=== PATIENT | female | born 1945 | race Caucasian/White ===

== ENCOUNTER 2018-05-28 18:07 | Emergency (ER) | payer OTHER ==
[~2018-05-28] VITALS: Ht 152.4 cm; Wt 53.1 kg
[2018-05-28] MEDS ORDERED: METFORMIN HCL500 MG (18:32)
[2018-05-28] MEDS ORDERED: AMLODIPINE BESYL5 MG (18:33)
[2018-05-28] MEDS ORDERED: ATENOLOL50 MG (18:33)
[2018-05-28] MEDS ORDERED: LISINOPRIL10 MG (18:33)
== END 2018-05-28 22:10 | disposition home or self-care (01) ==
LOC: ER 18:07
DX: L30.8 Other specified dermatitis (principal); M50.33 Other cervical disc degeneration, cervicothoracic region